=== PATIENT | female | born 1960 | race American Indian/Alaskan Native ===

== ENCOUNTER 2017-05-16 22:59 | Emergency (ER) | payer MEDICAID ==
[2017-05-16 23:15] VITALS: BP 130/79
[2017-05-16 23:59] LABS: Basophils % (Auto) 0.9 % (0.0-1.8); Eosinophils % (Auto) 3.5 % (0.0-4.3); Hematocrit 44.4 % (30.3-42.9); Hemoglobin 14.5 gm/dl (10.1-14.3); Mean Corpuscular HGB Conc 33 % (30-34); Mean Corpuscular Hemoglobin 31 pg (28-32); Mean Corpuscular Volume 95 fl (79-97); Platelet Count 182 K/mm3 (140-440); Red Blood Count 4.69 M/mm3 (3.65-5.03); Red Cell Distribution Width 13.6 % (13.2-15.2); White Blood Count 7.1 K/mm3 (4.5-11.0)
[2017-05-17 00:08] LABS: INR 1.05 (0.87-1.13); Partial Thromboplastin Time 24.1 Sec. (24.2-36.6)
[2017-05-17 00:16] LABS: Anion Gap 19 mmol/L; BUN/Creatinine Ratio 26.66; Blood Urea Nitrogen 16 mg/dL (7-17); Calcium 9.5 mg/dL (8.4-10.2); Carbon Dioxide 21 mmol/L (22-30); Chloride 106.1 mmol/L (98-107); Glucose 100 mg/dL (65-100); Potassium 3.4 mmol/L (3.6-5.0); Sodium 143 mmol/L (137-145)
--- NOTE | 2017-05-22 22:09 | ED Elopement Review ---
ED Pt Elopement review - Results review Lab results: Laboratory Tests 05/16/17 05/16/17 05/16/17 23:35 23:35 23:35 WBC 7.1 RBC 4.69 Hgb 14.5 H Hct 44.4 H MCV 95 MCH 31 MCHC 33 RDW 13.6 Plt Count 182 Lymph % (Auto) 24.0 [place] % (Auto) 7.3 Eos % (Auto) 3.5 Baso % (Auto) 0.9 Lymph # 1.7 [place] # 0.5 Eos # 0.2 Baso # 0.1 Seg Neutrophils % 64.3 Seg Neutrophils # 4.6 PT 13.6 INR 1.05 APTT 24.1 L VBG pH Sodium 143 Potassium 3.4 L Chloride 106.1 Carbon Dioxide 21 L Anion Gap 19 BUN 16 Creatinine 0.6 L Estimated GFR > 60 BUN/Creatinine Ratio 26.66 Glucose 100 Calcium 9.5 Magnesium Troponin T < 0.010 05/16/17 05/16/17 05/17/17 23:35 23:35 02:26 WBC RBC Hgb Hct MCV MCH MCHC RDW Plt Count Lymph % (Auto) [place] % (Auto) Eos % (Auto) Baso % (Auto) Lymph # [place] # Eos # Baso # Seg Neutrophils % Seg Neutrophils # PT INR APTT VBG pH 7.323 Sodium Potassium Chloride Carbon Dioxide Anion Gap BUN Creatinine Estimated GFR BUN/Creatinine Ratio Glucose Calcium Magnesium 2.00 Troponin T < 0.010 - Call Back decision Pt Call Back Decision: No action required
== END 2017-05-17 05:00 | disposition left against medical advice (07) ==
LOC: ED 22:59
DX: R07.9 Chest pain, unspecified (principal); Z53.21 Procedure and treatment not carried out due to patient leaving prior to being seen by health care provider
CPT/HCPCS: 36415; 80048; 82805; 83735; 84484; 85025; 85610; 85730; 93005; 93010

== ENCOUNTER 2017-06-30 00:39 | Emergency (ER) | payer MEDICAID ==
[2017-06-30 01:32] VITALS: BP 133/83
--- NOTE | 2017-06-30 02:06 | Emergency Department Report ---
ED Lower Extremity HPI - General Chief Complaint: Extremity Injury, Lower Stated Complaint: L FOOT PAIN Source: patient Mode of arrival: Ambulatory Limitations: Physical Limitation - History of Present Illness MD Complaint: ankle injury, foot injury -: Sudden, This evening Injury: Foot: Left Type of Injury: inversion Place: home Severity scale (0 -10): 6 Worsens With: weight bearing, movement, palpation Context: walking Associated Symptoms: swelling, unable to bear weight - Related Data Home Medications Medication Instructions Recorded Confirmed Last Taken Levothyroxine [Synthroid] 125 mg PO QAM 12/25/15 12/25/15 12/24/15 125 mg Olopatadine HCl [Patanol 0.1%] 1 drop OP QDAY 12/25/15 12/25/15 12/24/15 yes Propranolol [Inderal] 160 mg PO DAILY 12/25/15 12/25/15 12/24/15 160 mg amLODIPine [Norvasc] 10 mg PO DAILY 12/25/15 12/25/15 12/24/15 10 MG Previous Rx's Medication Instructions Recorded Last Taken Type traMADol [Ultram 50 MG tab] 50 mg PO Q4HR PRN #20 tablet 06/30/17 Unknown Rx Allergies Allergy/AdvReac Type Severity Reaction Status Date / Time [place] And Derivatives Allergy Unknown Verified 06/20/15 23:29 latex Allergy Itching Verified 06/20/15 23:29 seafood Allergy Swelling Uncoded 06/20/15 23:29 ED Review of Systems ROS: Stated complaint: L FOOT PAIN Other details as noted in HPI Constitutional: denies: chills, fever Eyes: denies: eye pain, eye discharge, vision change ENT: denies: ear pain, throat pain Respiratory: denies: cough, shortness of breath, wheezing Cardiovascular: denies: chest pain, palpitations, syncope Gastrointestinal: denies: abdominal pain, nausea, vomiting, diarrhea Musculoskeletal: joint swelling, arthralgia Skin: denies: rash, lesions Neurological: denies: headache, weakness, numbness, paresthesias, confusion ED Past Medical Hx - Past Medical History Hx Hypertension: Yes Hx Diabetes: Yes Hx Arthritis: Yes Additional medical history: lupus. hypothyroid. anemia. glaucoma/cataracts. MVP - Surgical History Past Surgical History?: Yes Additional Surgical History: hysterectomy. cataract surgery. - Social History Smoking Status: Current Every Day Smoker Substance Use Type: None - Medications Home Medications: Home Medications Medication Instructions Recorded Confirmed Last Taken Type Levothyroxine [Synthroid] 125 mg PO QAM 12/25/15 12/25/15 12/24/15 History 125 mg Olopatadine HCl [Patanol 0.1%] 1 drop OP QDAY 12/25/15 12/25/15 12/24/15 History yes Propranolol [Inderal] 160 mg PO DAILY 12/25/15 12/25/15 12/24/15 History 160 mg amLODIPine [Norvasc] 10 mg PO DAILY 12/25/15 12/25/15 12/24/15 History 10 MG traMADol [Ultram 50 MG tab] 50 mg PO Q4HR PRN #20 tablet 06/30/17 Unknown Rx ED Physical Exam - General Limitations: Physical Limitation General appearance: alert, in no apparent distress - Head Head exam: Present: atraumatic, normocephalic - Eye Eye exam: Present: normal appearance, PERRL, EOMI - ENT ENT exam: Present: mucous membranes moist - Neck Neck exam: Present: normal inspection, full ROM - Respiratory Respiratory exam: Absent: respiratory distress - Cardiovascular Cardiovascular Exam: Present: regular rate - Expanded Lower Extremity Exam Left Lower Leg exam: Present: normal inspection, full ROM. Absent: deformity Ankle exam: Present: full ROM, tenderness, swelling. Absent: ecchymosis, deformity Foot/Toe exam: Present: tenderness, swelling, ecchymosis, tenderness at base of 5th metatarsal. Absent: deformity, crepidus, dislocation Neuro vascular tendon exam: Present: no vascular compromise. Absent: abnormal cap refill Gait: Positive: not tested/not observed 1 - swelling and tenderness without deformity. nvmi, good 2 point discrimination, brisk cap refill - Back Exam Back exam: Present: normal inspection - Neurological Exam Neurological exam: Present: alert, oriented X3 - Skin Skin exam: Present: warm, dry, intact, normal color. Absent: rash ED Course Vital Signs 06/30/17 01:28 Temperature 97.9 F Pulse Rate 65 Respiratory 16 Rate Blood Pressure 133/83 O2 Sat by Pulse 99 Oximetry - Reevaluation(s) Reevaluation #1: 06/30/17 02:35 Patient advised that she no longer wants to wait for radiology reports. I discussed with patient that I looked at her films and I do not see any acute bony lesion/fractures. But the official radiologist report is going to be the defining answer whether or not she has any bony lesion. With that being said patient states she would rather go home and call medical records tomorrow for the official report. I told her I understood this and we will still go ahead and treat as if she does have a fracture and splint her ankle and put her on crutches with directions of no weightbearing until she gets official report. Patient verbalized understanding of these instructions. ED Lower Extremity MDM - Radiology Data Radiology results: pending, image reviewed interpreted by me: No fracture dislocation seen. Patient states she wanted will call medical records tomorrow for radiology report. I will still treat as if she has a fracture with splint crutches and directions of no weightbearing until official report comes. Patient verbalized understanding of these instructions and really wants to go home now. Critical care attestation.: If time is entered above; I have spent that time in minutes in the direct care of this critically ill patient, excluding procedure time. ED Disposition Clinical Impression: Injury of foot, left, Injury of ankle, left Disposition: DC-01 TO HOME OR SELFCARE Is pt being admited?: No Condition: Stable Instructions: Foot Fracture in Adults (ED), Ankle Fracture (ED) Prescriptions: traMADol [Ultram 50 MG tab] 50 mg PO Q4HR PRN #20 tablet PRN Reason: Pain Referrals: PRIMARY CARE, [Primary Care Provider] - 3-5 Days TEJAS GALLO MD [Staff Physician] - 3-5 Days
[2017-06-30] MEDS ORDERED: NORCO 5/325 PO ONE (02:13)
--- NOTE | 2017-06-30 04:20 | XRay Report ---
FINAL REPORT EXAM: XR FOOT 3+V LT HISTORY: injury to the left foot TECHNIQUE: AP, lateral, and oblique views of the left foot PRIORS: None. FINDINGS: There is no evidence for acute fracture or dislocation. No soft tissue swelling or radiopaque foreign bodies are seen. Bony mineralization is normal. Joint spaces are maintained. IMPRESSION: No acute soft tissue or bony abnormality noted.
--- NOTE | 2017-06-30 04:46 | XRay Report ---
FINAL REPORT PROCEDURE: XR ANKLE 3+V LT TECHNIQUE: Left ankle radiographs, AP, lateral, and oblique views. CPT 50577 HISTORY: injury COMPARISON: No prior studies are available for comparison. FINDINGS: Fracture (s) and/or Dislocation(s): None . Alignment: Normal . Joint space(s): Normal . Soft tissues: Normal . Bone mineralization: Normal . Foreign bodies: None . Calcaneal spurring: None . IMPRESSION: Normal Examination .
== END 2017-06-30 02:54 | disposition home or self-care (01) ==
LOC: ED 00:39
DX: S99.912A Unspecified injury of left ankle, initial encounter (principal); I10 Essential (primary) hypertension; E11.9 Type 2 diabetes mellitus without complications; F17.200 Nicotine dependence, unspecified, uncomplicated; X58.XXXA Exposure to other specified factors, initial encounter; Y93.9 Activity, unspecified; Y92.9 Unspecified place or not applicable; Y99.9 Unspecified external cause status

== ENCOUNTER 2017-11-10 10:27 | Emergency (ER) | payer MEDICAID ==
[2017-11-10 11:05] VITALS: BP 135/77
--- NOTE | 2017-11-10 12:18 | XRay Report ---
ROUTINE CHEST, TWO VIEWS: HISTORY: chest pain. The trachea, heart, mediastinal contour, lung stokes and bony thorax are unremarkable. IMPRESSION: Unremarkable chest x-ray.
[2017-11-10 12:24] LABS: Hematocrit 44.4 % (30.3-42.9); Mean Corpuscular HGB Conc 34 % (30-34); Mean Corpuscular Hemoglobin 32 pg (28-32); Mean Corpuscular Volume 94 fl (79-97); Platelet Count 216 K/mm3 (140-440); Red Cell Distribution Width 12.9 % (13.2-15.2); White Blood Count 7.8 K/mm3 (4.5-11.0)
[2017-11-10 12:39] LABS: Anion Gap 16 mmol/L; BUN/Creatinine Ratio 15; Blood Urea Nitrogen 9 mg/dL (7-17); Calcium 9.3 mg/dL (8.4-10.2); Carbon Dioxide 24 mmol/L (22-30); Chloride 104.7 mmol/L (98-107); Glucose 81 mg/dL (65-100); Sodium 141 mmol/L (137-145)
[2017-11-10 13:13] LABS: Bilirubin,Urine NEG (Negative); Blood,Urine NEG (Negative); Ketones,Urine NEG (Negative); Leukocyte Esterase,Urine NEG (Negative); Nitrite,Urine NEG (Negative); Protein,Urine <15 mg/dL mg/dL (Negative); Urobilinogen,Urine < 2.0 mg/dL (<2.0); WBC,Urine < 1.0 /HPF (0.0-6.0)
[2017-11-10] MEDS ORDERED: TYLENOL PO ONE (14:21)
[2017-11-10] MEDS ORDERED: TYLENOL ONE (14:21)
--- NOTE | 2017-11-10 14:38 | Emergency Department Report ---
HPI - General Chief Complaint: Upper Respiratory Infection Time Seen by Provider: 11/10/17 14:18 - HPI HPI: Patient here report that she's been having cold symptoms 10 days. She is having increasingly worse over the last 2 days. She is complaining a headache, body ache, dizziness, eye pain, dry cough and chest pain with cough this. She reports that her pain is 10 out of 10 and that it is achy. Patient has multiple medical problems to include arthritis, diabetes, hypertension, lupus, hypothyroidism, anemia, glaucoma, mitral valve prolapse. She has had hysterectomy in the past. She says she's been trying [id number] cough and cold but it's not helping. Denies any shortness of breath. She denies any fever or chills. ED Past Medical Hx - Past Medical History Previous Medical History?: Yes Hx Hypertension: Yes Hx Diabetes: Yes Hx Arthritis: Yes Additional medical history: lupus. hypothyroid. anemia. glaucoma/cataracts. MVP - Surgical History Past Surgical History?: Yes Additional Surgical History: hysterectomy. cataract surgery. - Family History Family history: hypertension - Social History Smoking Status: Current Every Day Smoker Substance Use Type: None - Medications Home Medications: Home Medications Medication Instructions Recorded Confirmed Last Taken Type Levothyroxine [Synthroid] 125 mg PO QAM 12/25/15 12/25/15 12/24/15 History 125 mg Olopatadine HCl [Patanol 0.1%] 1 drop OP QDAY 12/25/15 12/25/15 12/24/15 History yes Propranolol [Inderal] 160 mg PO DAILY 12/25/15 12/25/15 12/24/15 History 160 mg amLODIPine [Norvasc] 10 mg PO DAILY 12/25/15 12/25/15 12/24/15 History 10 MG traMADol [Ultram 50 MG tab] 50 mg PO Q4HR PRN #20 tablet 06/30/17 Unknown Rx Albuterol Sulfate [Ventolin HFA] 2 puff IH Q4H PRN 30 Days #1 11/10/17 Unknown Rx hfa.aer.ad Cetirizine HCl [ZyrTEC] 10 mg PO QAM 14 Days #14 capsule 11/10/17 Unknown Rx Doxycycline [Vibramycin CAP] 100 mg PO Q12HR 10 Days #20 capsule 11/10/17 Unknown Rx Fluticasone [Flonase] 1 spray NS QDAY 1 Days #1 bottle 11/10/17 Unknown Rx Prednisone 50 mg PO QAM 5 Days #5 tablet 11/10/17 Unknown Rx guaiFENesin/CODEINE [Robitussin AC] 10 ml PO QAM PRN 7 Days #70 11/10/17 Unknown Rx oral.liqd ED Review of Systems ROS: Stated complaint: MARRUFO/BODY ACHE/CP Other details as noted in HPI Comment: All other systems reviewed and negative Constitutional: no symptoms reported Eyes: eye pain ENT: congestion (with runny nose) Respiratory: cough, wheezing. denies: orthopnea, shortness of breath, SOB with exertion, SOB at rest, stridor Cardiovascular: chest pain (with coughing). denies: palpitations, dyspnea on exertion, orthopnea, edema, syncope, paroxysmal nocturnal dyspnea Gastrointestinal: denies: abdominal pain, nausea, vomiting, diarrhea, constipation Genitourinary: denies: urgency, dysuria, frequency, hematuria, discharge Musculoskeletal: arthralgia, myalgia. denies: back pain, joint swelling Skin: denies: rash Neurological: headache, other (dizziness). denies: weakness, numbness, paresthesias, confusion, abnormal gait, vertigo Physical Exam - Physical Exam Vital Signs: Vital Signs 11/10/17 11/10/17 11:01 14:22 Temperature 97.5 F L Pulse Rate 66 Respiratory 20 18 Rate Blood Pressure 135/77 O2 Sat by Pulse 96 Oximetry General: This is a 57-year-old female well-nourished well-developed in no acute distress Physical Exam: Head: Normocephalic, atraumatic, no abrasion, no bruising and no contusion. Eyes: Biateral pupils equal and reactive to light, bilateral EOM intact.. Bilateral conjunctival and sclera without injection, normal accommodation. No nystagmus Ears: Bilateral TMs congested without any erythema, bilateral nasal mucosa congested with erythema and clear drainage. No maxillary or frontal sinus tenderness. No mastoid bone tenderness. Bilateral tract is nontender to palpate Mouth: Moist, no pharyngeal exudate or erythema. Uvula is midline and tongue is normal. Oral airways patent. Neck: Supple, No Cervical adenopathy, full range of motion and no C-spine tenderness. No swelling or tracheal deviation normal reflexes Cardiovascular: S1, S2. Regular rate and rhythm. No murmur. Capillary refill is less then 3 seconds. Lungs: Had reason to upper lung stokes. No rhonchi, or rales. No chest wall tenderness. No use of accessory muscles MSK: Strength 5/5 in all extremities. No joint deformity or crepitus. Normal inspection. Full range of motion to all extremities Extremities: No clubbing, cyanosis or edema. +2 pulses. No neurovascular compromise Skin: Clean, dry and intact. No rash or lesions. Neurological: GCS at 15, Pt is alert and oriented 3 speech is clear period. Bilateral hand chemical applicator strong and equal. Normal gait. Negative Romberg and no pronator drift. Normal Reflexes. No motor or sensory deficit Back: No vertebral tenderness, no paraspinal tenderness. Ambulates without any difficulties. Psych: Normal mood and behavior ED Course Vital Signs 11/10/17 11/10/17 11:01 14:22 Temperature 97.5 F L Pulse Rate 66 Respiratory 20 18 Rate Blood Pressure 135/77 O2 Sat by Pulse 96 Oximetry - Reevaluation(s) Reevaluation #1: 11/10/17 16:21 Patient and received albuterol 5 mg nebulizer, Atrovent 0.5 mg nebulizer in emergency room with Deltasone 60 mg by mouth. She also received Rocephin 1 g IM. She had no adverse reaction to medication. Upper evaluation, patient lung sounds are clear and she says she feels better. ED Medical Decision Making - Lab Data Result diagrams: 11/10/17 12:07 11/10/17 12:07 Lab Results 11/10/17 11/10/17 11/10/17 Range/Units 12:07 12:07 Unknown WBC 7.8 (4.5-11.0) K/mm3 RBC 4.70 (3.65-5.03) M/mm3 Hgb 15.0 H (10.1-14.3) gm/dl Hct 44.4 H (30.3-42.9) % MCV 94 (79-97) fl MCH 32 (28-32) pg MCHC 34 (30-34) % RDW 12.9 L (13.2-15.2) % Plt Count 216 (140-440) K/mm3 Sodium 141 (137-145) mmol/L Potassium 4.0 (3.6-5.0) mmol/L Chloride 104.7 (98-107) mmol/L Carbon Dioxide 24 (22-30) mmol/L Anion Gap 16 mmol/L BUN 9 (7-17) mg/dL Creatinine 0.6 L (0.7-1.2) mg/dL Estimated GFR > 60 ml/min BUN/Creatinine Ratio 15 % Glucose 81 (65-100) mg/dL Calcium 9.3 (8.4-10.2) mg/dL Troponin T < 0.010 (0.00-0.029) ng/mL Urine Color Straw (Yellow) Urine Turbidity Clear (Clear) Urine pH 7.0 (5.0-7.0) Ur Specific [place] 1.005 (1.003-1.030) Urine Protein <15 mg/dl (Negative) mg/dL Urine Glucose (UA) Neg (Negative) mg/dL Urine Ketones Neg (Negative) mg/dL Urine Blood Neg (Negative) Urine Nitrite Neg (Negative) Urine Bilirubin Neg (Negative) Urine Urobilinogen < 2.0 (<2.0) mg/dL Ur Leukocyte Esterase Neg (Negative) Urine WBC (Auto) < 1.0 (0.0-6.0) /HPF Urine RBC (Auto) 1.0 (0.0-6.0) /HPF U Epithel Cells (Auto) < 1.0 (0-13.0) /HPF Influenza A and B- - EKG Data -: EKG Interpreted by Me (interpreted by attending physician in emergency room) EKG shows normal: sinus rhythm (6 5 bpm) Rate: normal - EKG Data Interpretation: no acute changes, normal EKG - Radiology Data Radiology results: report reviewed X-ray reveal no acute cardiopulmonary processes - Medical Decision Making ED course: Clinically emergency room with cold symptoms 10 days. She has multiple comorbidities. Physical findings for acute upper respiratory with cough and congestion and bronchitis. Patient was complaining of chest pain with coughing EKG sinus rhythm at 65 beats a minute with no ST abnormalities, chest x-ray revealed no acute abnormalities, influenza A and B-, urinalysis reveals no infection, troponin within normal limits, CBC is stable and BMP is stable. This was communicated with patient and family and she voiced understanding. Patient given albuterol 5 mg and Atrovent 0.5 mg nebulizer and emergency room, Deltasone 60 mg by mouth, Rocephin 1 g IM to cover upper respiratory tract infection and bronchitis this been ongoing for 10 days and patient has been taking in [id number] medication for worsening symptoms. I decided to treat patient with antibiotics because she has multiple comorbidities which includes autoimmune disease and she is at risk for bacterial infection. Condition discharged home in stable condition with her family member with prescription for Ventolin HFA, prednisone, doxycycline, Zyrtec and Flonase. Patient to follow up with her primary care physician in 2- 3 days which she does have a primary care physician. Critical care attestation.: If time is entered above; I have spent that time in minutes in the direct care of this critically ill patient, excluding procedure time. ED Disposition Clinical Impression: Upper respiratory infection with cough and congestion, Bronchitis, Atypical chest pain Disposition: TO HOME OR SELFCARE Is pt being admited?: No Does the pt Need Aspirin: No Condition: Stable Instructions: Chest Pain (ED), Acute Bronchitis (ED), Upper Respiratory Infection (ED), Acute Cough (ED) Additional Instructions: Please take antibiotic as prescribed Increase Your fluid intake Prescription cough medicine has codeine and causes drowsiness so please do not drive or operate heavy machinery while taking this medication Rest for 3 days Follow-up with primary care physician in 2-3 days Take all medication as prescribed You can use normal saline nasal wash to flush her nostrils out twice daily and this will help to relieve congestion You can use [id number] Tylenol to help with body aches but please follow dosing chart guidelines. Prescriptions: Albuterol Sulfate [Ventolin HFA] 2 puff IH Q4H PRN 30 Days #1 hfa.aer.ad PRN Reason: WHEEZING AND COUGH Cetirizine HCl [ZyrTEC] 10 mg PO QAM 14 Days #14 capsule Doxycycline [Vibramycin CAP] 100 mg PO Q12HR 10 Days #20 capsule Fluticasone [Flonase] 1 spray NS QDAY 1 Days #1 bottle guaiFENesin/CODEINE [Robitussin AC] 10 ml PO QAM PRN 7 Days #70 oral.liqd PRN Reason: Cough Prednisone 50 mg PO QAM 5 Days #5 tablet Referrals: PRIMARY CARE,MD [Primary Care Provider] - 2-3 Days Forms: Work/School Release Form(ED), Accompanied Note
[2017-11-10] MEDS ORDERED: ATROVENT IH ONE (15:06)
[2017-11-10] MEDS ORDERED: XYLOCAINE 1% MPF 5 mL INFILTRATI ONE (15:06)
[2017-11-10] MEDS ORDERED: ROCEPHIN IM STA (15:06)
[2017-11-10] MEDS ORDERED: DELTASONE PO ONE (15:06)
[2017-11-10] MEDS ORDERED: PROVENTIL IH ONE (15:06)
== END 2017-11-10 16:44 | disposition home or self-care (01) ==
LOC: ED 10:27
DX: J06.9 Acute upper respiratory infection, unspecified (principal); J40 Bronchitis, not specified as acute or chronic; R07.89 Other chest pain; I10 Essential (primary) hypertension; E11.9 Type 2 diabetes mellitus without complications; M19.90 Unspecified osteoarthritis, unspecified site; F17.200 Nicotine dependence, unspecified, uncomplicated; Z88.8 Allergy status to other drugs, medicaments and biological substances; Z91.040 Latex allergy status
CPT/HCPCS: 36415; 71020; 80048; 81001; 84484; 85027; 87400; 93005; 93010; 94640; 96372; 99284; J0696; J7512

== ENCOUNTER 2019-09-04 18:26 | Emergency (ER) | payer MEDICAID ==
[2019-09-04 18:41] VITALS: BP 136/77
--- NOTE | 2019-09-04 18:42 | Event Note ---
ED Screening Note ED Screening Note: general body aches +sob +chills +cough light green PMHx mitral valve prolapse, hypothyroid, lupus no allergies to meds +smoker This initial assessment/diagnostic orders/clinical plan/treatment(s) is/are subject to change based on patients health status, clinical progression and re- assessment by fellow clinical providers in the ED. Further treatment and workup at subsequent clinical providers discretion. Patient/guardian urged not to elope from the ED as their condition may be serious if not clinically assessed and managed. Initial orders include: labs, CXR, flu test flu test sent
[2019-09-04 19:05] LABS: Hematocrit 41.2 % (30.3-42.9); Hemoglobin 13.7 gm/dl (10.1-14.3); Mean Corpuscular HGB Conc 33 % (30-34); Mean Corpuscular Volume 88 fl (79-97); Platelet Count 200 K/mm3 (140-440); Red Blood Count 4.66 M/mm3 (3.65-5.03); Red Cell Distribution Width 14.9 % (13.2-15.2)
[2019-09-04 19:44] LABS: BUN/Creatinine Ratio 14; Blood Urea Nitrogen 10 mg/dL (7-17); Calcium 9.1 mg/dL (8.4-10.2); Hemolysis Index 5
[2019-09-04] MEDS ORDERED: ONDANSETRON 4 MG ODT TAB PO ONE (20:38)
[2019-09-04] MEDS ORDERED: dexAMETHasone 20 MG/5 ML VIAL IM ONE (20:38)
[2019-09-04] MEDS ORDERED: ALBUTEROL 2.5 MG/3 ML NEBU IH ONE (20:38)
[2019-09-04] MEDS ORDERED: IBUPROFEN 800 MG TAB PO ONE (20:38)
--- NOTE | 2019-09-04 20:39 | XRay Report ---
CHEST 2 VIEWS INDICATION / CLINICAL INFORMATION: cough, SOB. COMPARISON: 11/10/2017 FINDINGS: SUPPORT DEVICES: None. HEART / MEDIASTINUM: No significant abnormality. LUNGS / PLEURA: There is mild interstitial pulmonary edema. This appears to be superimposed upon some minimal chronic interstitial lung disease. Additionally there is suggestion of focal airspace diseas e in the left mid to lower lung, seen best on the PA view worrisome for pneumonia or possibly mass. R ight lung is otherwise grossly clear. No pneumothorax. ADDITIONAL FINDINGS: No significant additional findings. IMPRESSION: 1. Mild interstitial pulmonary edema. 2. Focal masslike density is present in the left mid to lower lung. This is probably pneumonia howeve r, mass is not entirely excluded and close radiographic follow-up is suggested to ensure that it does clear with medical therapy. Signer Name: Tess Neville MD Signed: 09/04/2019 8:35 PM Workstation Name: [id number]
--- NOTE | 2019-09-04 20:49 | Emergency Department Report ---
ED General Adult HPI - General Chief complaint: Weakness Stated complaint: ACHES/PAIN/FEVER/CHEST PAIN Time Seen by Provider: 09/04/19 18:39 Source: patient Mode of arrival: Ambulatory Limitations: No Limitations - History of Present Illness Initial comments: This is a 58-year-old -[place] female with a history of bronchitis asthma COPD hypothyroidism hypertension who presents with 3 days hx of generalized malaise fever chills cough wheezing . She has a flu body aches and generalized weakness patient states chest pain with cough only there is no diaphoresis no nausea vomiting no back pain dizziness or lightheadedness to this point patient is tolerating by mouth intake states she is out of her albuterol inhaler is KRISTIAN Onset/Timin -: days(s) Location: head, chest, upper extremity, lower extremity Radiation: other (OU long as) Severity scale (0 -10): 5 Quality: aching (history is) Consistency: constant Improves with: none (genitourinary) Worsens with: none (that is) Associated Symptoms: chest pain, cough, fever/chills, headaches, malaise, weakness (is) Treatments Prior to Arrival: none - Related Data Home Medications Medication Instructions Recorded Confirmed Last Taken Levothyroxine [Synthroid] 125 mg PO QAM 12/25/15 12/25/15 12/24/15 125 mg Olopatadine HCl [Patanol 0.1%] 1 drop OP QDAY 12/25/15 12/25/15 12/24/15 yes Propranolol [Inderal] 160 mg PO DAILY 12/25/15 12/25/15 12/24/15 160 mg amLODIPine [Norvasc] 10 mg PO DAILY 12/25/15 12/25/15 12/24/15 10 MG Previous Rx's Medication Instructions Recorded Last Taken Type Cyclobenzaprine [Flexeril] 10 mg PO TID PRN #10 tablet 11/26/18 Unknown Rx methylPREDNISolone [Medrol] 4 mg PO DAILY #1 tab.ds.pk 11/26/18 Unknown Rx ALBUTEROL Inhaler (OR & NICU) 2 puff IH QID PRN #1 inhalation 09/05/19 Unknown Rx [ProAir HFA Inhaler] Azithromycin [Zithromax Z-BRAULIO] 250 mg PO DAILY #6 tab 09/05/19 Unknown Rx Benzonatate [Tessalon Perles] 100 mg PO Q8HR PRN #30 capsule 09/05/19 Unknown Rx Ibuprofen [Motrin 800 MG tab] 800 mg PO Q8HR PRN #30 tablet 09/05/19 Unknown Rx Allergies Allergy/AdvReac Type Severity Reaction Status Date / Time [place] And Derivatives Allergy Unknown Verified 06/20/15 23:29 latex Allergy Itching Verified 06/20/15 23:29 seafood Allergy Swelling Uncoded 06/20/15 23:29 ED Review of Systems ROS: Stated complaint: ACHES/PAIN/FEVER/CHEST PAIN Other details as noted in HPI Constitutional: chills, fever Eyes: denies: eye pain, eye discharge, vision change ENT: ear pain, throat pain, congestion Respiratory: cough, shortness of breath, wheezing Cardiovascular: chest pain. denies: palpitations Endocrine: no symptoms reported Gastrointestinal: as per HPI. denies: abdominal pain, nausea, vomiting Genitourinary: denies: urgency, dysuria, discharge Musculoskeletal: denies: back pain, joint swelling, arthralgia Skin: denies: rash, lesions Neurological: denies: headache, weakness, paresthesias Psychiatric: denies: anxiety, depression Hematological/Lymphatic: as per HPI ED Past Medical Hx - Past Medical History Previous Medical History?: Yes Hx Hypertension: Yes Hx Diabetes: Yes Hx Arthritis: Yes Additional medical history: lupus. hypothyroid. anemia. glaucoma/cataracts. MVP - Surgical History Past Surgical History?: Yes Additional Surgical History: hysterectomy. cataract surgery. - Social History Smoking Status: Current Every Day Smoker Substance Use Type: None - Medications Home Medications: Home Medications Medication Instructions Recorded Confirmed Last Taken Type Levothyroxine [Synthroid] 125 mg PO QAM 12/25/15 12/25/15 12/24/15 History 125 mg Olopatadine HCl [Patanol 0.1%] 1 drop OP QDAY 12/25/15 12/25/15 12/24/15 History yes Propranolol [Inderal] 160 mg PO DAILY 12/25/15 12/25/15 12/24/15 History 160 mg amLODIPine [Norvasc] 10 mg PO DAILY 12/25/15 12/25/15 12/24/15 History 10 MG Cyclobenzaprine [Flexeril] 10 mg PO TID PRN #10 tablet 11/26/18 Unknown Rx methylPREDNISolone [Medrol] 4 mg PO DAILY #1 tab.ds.pk 11/26/18 Unknown Rx ALBUTEROL Inhaler (OR & NICU) 2 puff IH QID PRN #1 inhalation 09/05/19 Unknown Rx [ProAir HFA Inhaler] Azithromycin [Zithromax Z-BRAULIO] 250 mg PO DAILY #6 tab 09/05/19 Unknown Rx Benzonatate [Tessalon Perles] 100 mg PO Q8HR PRN #30 capsule 09/05/19 Unknown Rx Ibuprofen [Motrin 800 MG tab] 800 mg PO Q8HR PRN #30 tablet 09/05/19 Unknown Rx ED Physical Exam - General Limitations: No Limitations General appearance: alert - Head Head exam: Present: normocephalic, normal inspection - Eye Eye exam: Present: normal appearance, PERRL, EOMI Pupils: Present: normal accommodation - ENT ENT exam: Present: mucous membranes moist - Neck Neck exam: Present: normal inspection, full ROM. Absent: tenderness, lymphaden opathy, thyromegaly - Respiratory Respiratory exam: Present: normal lung sounds bilaterally, chest wall tenderness (right lateral ). Absent: respiratory distress, wheezes, stridor - Cardiovascular Cardiovascular Exam: Present: regular rate, normal rhythm, normal heart sounds. Absent: systolic murmur, diastolic murmur, rubs, gallop - GI/Abdominal GI/Abdominal exam: Present: soft, normal bowel sounds. Absent: distended, tenderness, guarding, rebound, rigid, bruit, hernia - Rectal Rectal exam: Present: deferred - Extremities Exam Extremities exam: Present: normal inspection, full ROM, normal capillary refill. Absent: tenderness, pedal edema, joint swelling, calf tenderness - Back Exam Back exam: Present: normal inspection, full ROM. Absent: tenderness, CVA tenderness (R), CVA tenderness (L), rash noted - Neurological Exam Neurological exam: Present: alert, oriented X3, CN II-XII intact, normal gait - Psychiatric Psychiatric exam: Present: normal affect, normal mood - Skin Skin exam: Present: warm ED Course Vital Signs 09/04/19 09/04/19 18:39 21:44 Temperature 100.1 F H Pulse Rate 95 H Pulse Rate [ 85 Posterior Throughout] Respiratory 18 Rate Respiratory 20 Rate [Posterior Throughout] Blood Pressure 136/77 O2 Sat by Pulse 95 Oximetry ED Medical Decision Making - Lab Data Result diagrams: 09/04/19 18:48 09/04/19 18:48 Labs 09/04/19 09/04/19 09/04/19 18:42 18:48 18:48 WBC 10.6 RBC 4.66 Hgb 13.7 Hct 41.2 MCV 88 MCH 29 MCHC 33 RDW 14.9 Plt Count 200 Seg Neutrophils % [employer] Sodium 139 Potassium 3.6 Chloride 104.2 Carbon Dioxide 18 L Anion Gap 20 BUN 10 Creatinine 0.7 Estimated GFR > 60 BUN/Creatinine Ratio 14 Glucose 106 H Calcium 9.1 Troponin T Influenza A (Rapid) Negative Influenza B (Rapid) Negative 09/04/19 20:50 WBC RBC Hgb Hct MCV MCH MCHC RDW Plt Count Seg Neutrophils % Sodium Potassium Chloride Carbon Dioxide Anion Gap BUN Creatinine Estimated GFR BUN/Creatinine Ratio Glucose Calcium Troponin T < 0.010 Influenza A (Rapid) Influenza B (Rapid) HIS MEDICAL DECISION - Radiology Data Radiology results: report reviewed, image reviewed Findings [facility] [address] [place] [address] XRay Report Signed Patient: JOSÉ AGUILLON MR#: [id number] : 1960 Acct:[id number] Age/Sex: 58 / F ADM Date: 09/04/19 Loc: ED Attending Dr: Ordering Physician: ABDIRASHID AGUILERA Date of Service: 09/04/19 Procedure(s): XR chest routine 2V Accession Number(s): [id number] cc: ABDIRASHID AGUILERA Fluoro Time In Minutes: CHEST 2 VIEWS INDICATION / CLINICAL INFORMATION: cough, SOB. COMPARISON: 11/10/2017 FINDINGS: SUPPORT DEVICES: None. HEART / MEDIASTINUM: No significant abnormality. LUNGS / PLEURA: There is mild interstitial pulmonary edema. This appears to be superimposed upon some minimal chronic interstitial lung disease. Additionally there is suggestion of focal airspace disease in the left mid to lower lung, seen best on the PA view worrisome for pneumonia or possibly mass. Right lung is otherwise grossly clear. No pneumothorax. ADDITIONAL FINDINGS: No significant additional findings. IMPRESSION: 1. Mild interstitial pulmonary edema. 2. Focal masslike density is present in the left mid to lower lung. This is probably pneumonia however, mass is not entirely excluded and close radiographic follow-up is sugg ested to ensure that it does clear with medical therapy. Signer Name: Tess Neville MD Signed: 09/04/2019 8:35 PM Workstation Name: [id number] Transcribed By: Dictated By: Tess Neville MD Electronically Authenticated By: Tess Neville MD Signed Date/Time: 09/04/192034 DD/ 32 TD/TT: - Medical Decision Making Chest x-ray mass versus left lower lobe pneumonia due to symptoms as likely pneumonia however patient has a prior 2% of his chest x-ray patient did have one neb treatment NSAIDs and steroids advised that Symptoms were better patient eloped prior to x-ray results called patient 3 to phone number listed the demographic sheet left messages to return for antibiotics and follow up with pulmonology rule out mass patient last seen in stable condition final disposition will be undetermined as she eloped. Critical care attestation.: If time is entered above; I have spent that time in minutes in the direct care of this critically ill patient, excluding procedure time. ED Disposition Clinical Impression: CAP (community acquired pneumonia) Qualifiers: Laterality: left Lung location: lower lobe of lung Qualified Code(s): J18.1 - Lobar pneumonia, unspecified organism AB (asthmatic bronchitis) Qualifiers: Asthma severity: mild Asthma persistence: intermittent Asthma complication type: with acute exacerbation Qualified Code(s): J45.21 - Mild intermittent asthma with (acute) exacerbation Disposition: Z07 ELOPED Is pt being admited?: No Does the pt Need Aspirin: No Condition: Stable Instructions: Bacterial Pneumonia (ED), Chronic Bronchitis (ED) Prescriptions: Ibuprofen [Motrin 800 MG tab] 800 mg PO Q8HR PRN #30 tablet PRN Reason: pain fever ALBUTEROL Inhaler (OR & NICU) [ProAir HFA Inhaler] 2 puff IH QID PRN #1 inhalation PRN Reason: Shortness Of Breath Benzonatate [Tessalon Perles] 100 mg PO Q8HR PRN #30 capsule PRN Reason: Cough Azithromycin [Zithromax Z-BRAULIO] 250 mg PO DAILY #6 tab Referrals: PRIMARY CARE, [Primary Care Provider] - 3-5 Days PAOLA POOLE MD [Staff Physician] - 3-5 Days
[2019-09-04 22:23] LABS: Band Neutrophils # (Manual) 0.4 K/mm3; Basophils % (Manual) 0 % (0.0-1.8); Eosinophils % (Manual) 0 % (0.0-4.3); Monocytes % (Manual) 0 % (0.0-7.3); RBC Morphology Normal; Total Cells Counted 100
[2019-09-04 22:24] LABS: Platelet Estimate Consistent w Auto
== END 2019-09-04 22:00 | disposition left against medical advice (07) ==
LOC: ED 18:26
DX: J18.9 Pneumonia, unspecified organism (principal); J45.909 Unspecified asthma, uncomplicated; I10 Essential (primary) hypertension; E11.9 Type 2 diabetes mellitus without complications; M19.90 Unspecified osteoarthritis, unspecified site; E03.9 Hypothyroidism, unspecified; F17.200 Nicotine dependence, unspecified, uncomplicated
CPT/HCPCS: 36415; 71046; 80048; 84484; 85007; 85025; 87400; 94644; 99284; J1100; 94640; Q0162